=== PATIENT | male | born 1985 | race Hispanic/Latino ===

== ENCOUNTER 2019-09-18 09:10 | Emergency (ER) | payer SELFPAY ==
[2019-09-18] MEDS ORDERED: Acetaminophen 500 MG TAB ONE (09:39)
[2019-09-18] MEDS ORDERED: Ibuprofen 800 MG TAB ONE (09:39)
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
== END 2019-09-18 10:50 | disposition home or self-care (01) ==
LOC: ERS 09:10
DX: S00.93XA Contusion of unspecified part of head, initial encounter (principal); M54.2 Cervicalgia; V43.62XA Car passenger injured in collision with other type car in traffic accident, initial encounter
CPT/HCPCS: 70450; 72125